=== PATIENT | male | born 1990 | race Caucasian/White ===

== ENCOUNTER 2021-10-06 22:11 | Emergency (ER) | payer MEDICAID ==
[~2021-10-06] VITALS: Ht 180.3 cm; Wt 100.0 kg
[2021-10-06 22:56] LABS: EOSINOPHILS % (AUTO) 3.9 % (1.0-6.0); HEMATOCRIT 42.2 % (41-53); HEMOGLOBIN 14.3 g/dL (13.5-17.5); LYMPHOCYTES # (AUTO) 2.6 K/uL (1.0-4.8); LYMPHOCYTES % (AUTO) 33.2 % (22.0-44.0); MEAN CORPUSCULAR HGB CONC 33.9 G/dL (31.0-37.0); MEAN CORPUSCULAR VOLUME 91 fL (80-100); MONOCYTES # (AUTO) 0.7 K/uL (0.1-1.0); MONOCYTES % (AUTO) 9.6 % (2.0-9.0); NEUTROPHILS # (AUTO) 4.1 K/uL (1.8-7.7); NEUTROPHILS % (AUTO) 52.3 % (40.0-70.0); PLATELET COUNT (AUTO) 272 K/uL (150-450); RED BLOOD CELL COUNT(AUTO) 4.62 MIL/uL (4.50-5.90); RED CELL DISTRIBUTION WIDTH 13.4 % (11.5-14.5)
[2021-10-06 23:13] LABS: ANION GAP 10 mmol/L (8-16); CALCIUM, TOTAL 9.4 mg/dL (8.8-10.5); CARBON DIOXIDE 30 mmol/L (22-29); CHLORIDE 103 mmol/L (98-107); CREATININE 1.04 mg/dL (0.60-1.30); GLOMERULAR FILTR. RATE CALC > 60 mL/min (>60); GLUCOSE,RANDOM 96 mg/dL (70-110); POTASSIUM 3.8 mmol/L (3.5-5.1); SODIUM SERUM 143 mmol/L (136-145); UREA NITROGEN, BLOOD 17 mg/dL (7-18)
[2021-10-06 23:19] LABS: ALANINE AMINOTRANSFERASE 29 U/L (12-78); ALBUMIN 4.2 g/dL (3.4-5.0); ALKALINE PHOSPHATASE 102 U/L (46-116); ASPARTATE AMINOTRANSFERASE 22 U/L (15-37); BILIRUBIN,TOTAL 0.3 mg/dL (0.1-1.0)
[2021-10-06 23:47] LABS: AMPHET/METH SCREEN,URINE NEGATIVE (NEGATIVE); BARBITURATE SCREEN, URINE NEGATIVE (NEGATIVE); BENZODIAZEPINES SCREEN,URINE NEGATIVE (NEGATIVE); CANNABINOID SCREEN,URINE NEGATIVE (NEGATIVE); COCAINE SCREEN,URINE NEGATIVE (NEGATIVE); METHADONE SCREEN, URINE NEGATIVE (NEGATIVE); OPIATE SCREEN,URINE NEGATIVE (NEGATIVE)
[2021-10-06 23:50] LABS: PHENCYCLIDINE SCREEN,URINE NEGATIVE (NEGATIVE)
[2021-10-07] MEDS ORDERED: HALOPERIDOL 5 MG TABLET PO ONE (02:45)
[2021-10-07 02:55] LABS: COVID AG,FIA SOURCE NASOPHARYNGEAL
[2021-10-07 06:04] VITALS: BP 114/63
[2021-10-08] MEDS ORDERED: HALO5TAB2 PO (05:13)
[2021-10-08] MEDS ORDERED: BENZ0.5T44 PO (05:13)
[2021-10-08] MEDS ORDERED: FLUO10CA24 PO (05:13)
[2021-10-08] MEDS ORDERED: BUPR75 PO (05:15)
[2021-10-08] MEDS ORDERED: BUPR-121 PO (05:15)
== END 2021-10-07 06:21 | disposition home or self-care (01) ==
LOC: EMS 22:14
DX: F32.9 Major depressive disorder, single episode, unspecified (principal); F17.210 Nicotine dependence, cigarettes, uncomplicated; Z20.822 Contact with and (suspected) exposure to COVID-19
CPT/HCPCS: 36415; 80053; 80307; 85025; 87426; 99284; G0480

== ENCOUNTER 2021-10-07 07:10 | Outpatient (CLI) | payer MEDICAID ==
[~2021-10-07] VITALS: Ht 177.8 cm; Wt 90.7 kg
[2021-10-07 08:02] VITALS: BP 132/73
[2021-10-07 08:18] VITALS: BP 132/73
[2021-10-07] MEDS ORDERED: NICOTINE 14 MG/24 HOUR PATCH TD ONE (09:30)
[2021-10-07] MEDS: HALOPERIDOL 5 MG TABLET PO SCH (10:37)
[2021-10-07] MEDS: FLUoxetine HCL 10 MG CAPSULE PO SCH (10:37)
[2021-10-07] MEDS: BuPROPion HCL XL 150 MG ER TABLET PO SCH (10:42)
[2021-10-07 20:00] VITALS: BP 119/62
[2021-10-07] MEDS ORDERED: BENZTROPINE MESYLATE 0.5 MG TABLET PO SCH (21:00)
[2021-10-08] MEDS ORDERED: FLUO10CA24 PO (05:13)
[2021-10-08] MEDS ORDERED: BENZ0.5T44 PO (05:13)
[2021-10-08] MEDS ORDERED: HALO5TAB2 PO (05:13)
[2021-10-08] MEDS ORDERED: BUPR75 PO (05:15)
[2021-10-08] MEDS ORDERED: BUPR-121 PO (05:15)
[2021-10-08 09:00] VITALS: BP 125/71
[2021-10-08] MEDS: HALOPERIDOL 5 MG TABLET PO SCH (09:04)
[2021-10-08] MEDS: FLUoxetine HCL 10 MG CAPSULE PO SCH (09:04)
[2021-10-08] MEDS: BuPROPion HCL XL 150 MG ER TABLET PO SCH (09:05)
== END 2021-10-08 10:20 | disposition home or self-care (01) ==
LOC: CSU 07:10
PROVIDERS: ATTEND Psychiatry & Neurology Psychiatry
DX: F39 Unspecified mood [affective] disorder (principal)
CPT/HCPCS: 90792; Z7610

== ENCOUNTER 2022-03-22 13:20 | Emergency (ER) | payer MEDICAID ==
[~2022-03-22] VITALS: Ht 182.9 cm; Wt 81.8 kg
[~2022-03-22 13:20] MED LIST: BENZ0.5T49 PO; BUPR-345 PO; FLUO10CA24 PO; HALO5TAB2 PO
[2022-03-22] MEDS ORDERED: DiphenhydrAMINE HCL 50 MG/ML VIAL IM ONE (14:45)
[2022-03-22] MEDS ORDERED: HALOPERIDOL LACTATE 5 MG/ML VIAL IM ONE (14:45)
[2022-03-22] MEDS ORDERED: LORazepam 2 MG/ML VIAL IM ONE (14:45)
[2022-03-22 15:59] LABS: BASOPHILS % (AUTO) 0.9 % (0.0-2.0); EOSINOPHILS % (AUTO) 1.3 % (1.0-6.0); HEMATOCRIT 39.9 % (41-53); HEMOGLOBIN 13.6 g/dL (13.5-17.5); LYMPHOCYTES # (AUTO) 1.9 K/uL (1.0-4.8); LYMPHOCYTES % (AUTO) 30.7 % (22.0-44.0); MEAN CORPUSCULAR HEMOGLOBIN 29.7 pg (26.0-34.0); MEAN CORPUSCULAR VOLUME 87 fL (80-100); MONOCYTES # (AUTO) 0.6 K/uL (0.1-1.0); MONOCYTES % (AUTO) 9.2 % (2.0-9.0); NEUTROPHILS # (AUTO) 3.6 K/uL (1.8-7.7); NEUTROPHILS % (AUTO) 57.9 % (40.0-70.0); PLATELET COUNT (AUTO) 294 K/uL (150-450); RED BLOOD CELL COUNT(AUTO) 4.57 MIL/uL (4.50-5.90); RED CELL DISTRIBUTION WIDTH 13.3 % (11.5-14.5)
[2022-03-22 16:12] LABS: ANION GAP 10 mmol/L (8-16); CALCIUM, TOTAL 9.6 mg/dL (8.8-10.5); CARBON DIOXIDE 28 mmol/L (22-29); CHLORIDE 107 mmol/L (98-107); CREATININE 0.94 mg/dL (0.60-1.30); GLUCOSE,RANDOM 91 mg/dL (70-110); SODIUM SERUM 145 mmol/L (136-145); UREA NITROGEN, BLOOD 18 mg/dL (7-18)
[2022-03-22 16:13] LABS: GLOMERULAR FILTR. RATE CALC > 60 mL/min (>60)
[2022-03-22 16:18] LABS: ALANINE AMINOTRANSFERASE 48 U/L (12-78); ALKALINE PHOSPHATASE 104 U/L (46-116); ASPARTATE AMINOTRANSFERASE 36 U/L (15-37); BILIRUBIN,TOTAL 0.7 mg/dL (0.1-1.0); TOTAL PROTEIN, SERUM 7.5 g/dL (6.4-8.2)
[2022-03-22 18:24] VITALS: BP 130/85
== END 2022-03-22 21:48 | disposition home or self-care (01) ==
LOC: EMS 13:25
DX: F15.159 Other stimulant abuse with stimulant-induced psychotic disorder, unspecified (principal); F32.A Depression, unspecified; F20.9 Schizophrenia, unspecified; F17.210 Nicotine dependence, cigarettes, uncomplicated
CPT/HCPCS: 99285; 80053; 85025; 36415; 96372; G0480; J1200; J1630; J2060

== ENCOUNTER 2022-05-24 11:41 | Inpatient (IN) | payer MEDICAID ==
[~2022-05-24] VITALS: Ht 180.3 cm; Wt 80.7 kg
[2022-05-24] MEDS ORDERED: HALOPERIDOL 5 MG TABLET PO ONE (12:15)
[2022-05-24] MEDS ORDERED: LORazepam 1 MG TABLET PO ONE (12:15)
[2022-05-24] MEDS ORDERED: HALOPERIDOL 5 MG TABLET PO PRN (13:00)
[2022-05-24] MEDS ORDERED: LORazepam 2 MG TABLET PO PRN (13:00)
[2022-05-24] MEDS ORDERED: ZOLPIDEM TARTRATE 10 MG TABLET PO PRN (13:00)
[2022-05-24 14:19] LABS: COVID AG,FIA SOURCE NASOPHARYNGEAL
[2022-05-24] MEDS ORDERED: DiphenhydrAMINE HCL 50 MG/ML VIAL IM ONE (14:45)
[2022-05-24] MEDS ORDERED: HALOPERIDOL LACTATE 5 MG/ML VIAL IM ONE (14:45)
[2022-05-24] MEDS ORDERED: LORazepam 2 MG/ML VIAL IM ONE (14:45)
[2022-05-24 22:07] VITALS: BP 115/63
[2022-05-24] MEDS ORDERED: INFLUENZA VIRUS VACCINE QVS 2022-23 (6MO+)/PF 60 MCG/0.5 ML SYRINGE IM. ONE (23:45)
[2022-05-25 08:05] VITALS: BP 125/68
[2022-05-25] MEDS ORDERED: NICOTINE 14 MG/24 HOUR PATCH TD PRN (11:30)
[2022-05-25] MEDS ORDERED: ALBUTEROL SULFATE HFA 90 MCG/PUFF 8 GM INHALER IH PRN (11:30)
[2022-05-25] MEDS ORDERED: ACETAMINOPHEN 325 MG TABLET PO PRN (11:30)
[2022-05-25] MEDS ORDERED: MAG HYDROX/AL HYDROX/SIMETH ES 30 ML SUSPENSION UDCUP PO PRN (11:30)
[2022-05-25] MEDS ORDERED: DOCUSATE SODIUM 100 MG CAPSULE PO PRN (11:30)
[2022-05-25] MEDS ORDERED: IBUPROFEN 400 MG TABLET PO PRN (11:30)
[2022-05-25] MEDS ORDERED: ONDANSETRON HCL 4 MG TABLET PO PRN (11:30)
[2022-05-25] MEDS ORDERED: LOPERAMIDE HCL 2 MG CAPSULE PO PRN (11:30)
[2022-05-25] MEDS ORDERED: PETROLATUM,WHITE 28 GM JELLY TP PRN (11:30)
[2022-05-25] MEDS ORDERED: CloNIDine HCL 0.1 MG TABLET PO PRN (11:30)
[2022-05-25] MEDS ORDERED: GuaiFENesin/D-METHORPHAN [SUGAR-FREE] 200-20MG/10 ML SYRUP UDCUP PO PRN (11:30)
[2022-05-25] MEDS ORDERED: MAGNESIUM HYDROXIDE SUSPENSION 30 ML UDCUP PO PRN (11:30)
[2022-05-25] MEDS: FLUoxetine HCL 10 MG CAPSULE PO SCH (14:30)
[2022-05-25] MEDS: BENZTROPINE MESYLATE 0.5 MG TABLET PO SCH (15:07)
[2022-05-25] MEDS: BuPROPion HCL XL 150 MG ER TABLET PO SCH (15:07)
[2022-05-25] MEDS: HALOPERIDOL 5 MG TABLET PO SCH (16:21)
[2022-05-25 22:08] VITALS: BP 122/66
[2022-05-26] MEDS: HALOPERIDOL 5 MG TABLET PO SCH ×2 (08:23→16:13)
[2022-05-26] MEDS: BuPROPion HCL XL 150 MG ER TABLET PO SCH (08:23)
[2022-05-26] MEDS: BENZTROPINE MESYLATE 0.5 MG TABLET PO SCH (08:23)
[2022-05-26] MEDS: FLUoxetine HCL 10 MG CAPSULE PO SCH (08:23)
[2022-05-26 09:00] VITALS: BP 130/62
[2022-05-26 21:05] VITALS: BP 110/60
[2022-05-27] MEDS: HALOPERIDOL 5 MG TABLET PO SCH (08:14)
[2022-05-27] MEDS: BuPROPion HCL XL 150 MG ER TABLET PO SCH (08:15)
[2022-05-27] MEDS: BENZTROPINE MESYLATE 0.5 MG TABLET PO SCH (08:15)
[2022-05-27] MEDS: FLUoxetine HCL 10 MG CAPSULE PO SCH (08:15)
[2022-05-27 09:31] VITALS: BP 112/65
[2022-05-27] MEDS ORDERED: BUPR-50 PO (14:13)
[2022-05-27] MEDS ORDERED: HALO5TAB23 PO ×2 (14:14→16:32)
[2022-05-27] MEDS ORDERED: FLUO10CA24 PO (14:15)
[2022-05-27] MEDS ORDERED: BENZ0.5T49 PO ×2 (14:16→16:32)
[2022-05-27] MEDS ORDERED: PROZ10 PO (16:32)
[2022-05-27] MEDS ORDERED: BUPR-49 PO (16:32)
== END 2022-05-27 15:44 | disposition home or self-care (01) | DRG 750 ==
LOC: EMS 11:45 → B3A 17:56
PROVIDERS: ADMIT Psychiatry & Neurology Child & Adolescent Psychiatry; ATTEND Psychiatry & Neurology Child & Adolescent Psychiatry
DX: F25.9 Schizoaffective disorder, unspecified (principal); F10.10 Alcohol abuse, uncomplicated; I10 Essential (primary) hypertension; Z20.822 Contact with and (suspected) exposure to COVID-19; K59.00 Constipation, unspecified; F19.10 Other psychoactive substance abuse, uncomplicated; R74.01 Elevation of levels of liver transaminase levels; Z87.891 Personal history of nicotine dependence; Z71.51 Drug abuse counseling and surveillance of drug abuser
CPT/HCPCS: 99291; J1200; J1630; J2060